=== PATIENT | male | born 1955 | race Caucasian/White ===

== ENCOUNTER 2019-01-13 06:55 | Day surgery (SDC) | payer OTHER ==
[2019-01-13] MEDS ORDERED: Midazolam 1 MG/ML 2 ML SDV ONE (07:26)
[2019-01-13] MEDS ORDERED: fentaNYL 100 MCG/2 ML SDV ONE (07:26)
[2019-01-13] MEDS ORDERED: Ondansetron 4 MG/2 ML SDV ONE (07:26)
[2019-01-13] MEDS ORDERED: Propofol 200 MG/20 ML SDV ONE (07:26)
[2019-01-13] MEDS ORDERED: Sodium Chloride 0.9% 1,000 ML IV SCH (07:30)
[2019-01-13 09:46] VITALS: BP 131/85; PULSE 65
--- NOTE | 2019-01-13 14:09 | OR ---
DATE OF PROCEDURE: 01/13/2019 SURGEON: Selvin Valdez MD PROCEDURE: Colonoscopy. FINDINGS: Diverticulosis, mild, mostly concentrated in the sigmoid colon, without evidence of diverticulitis or bleeding. PREOPERATIVE DIAGNOSIS: Screening colonoscopy. POSTOPERATIVE DIAGNOSIS: Screening colonoscopy. RISKS: Risks, benefits, alternatives, and limitations including, but not limited to, infection, bleeding, and perforation were explained to the patient, who wished to proceed. PROCEDURE IN DETAIL: The patient was placed in left lateral decubitus position. Digital rectal exam was performed without abnormality. The scope was introduced and advanced atraumatically to the ileocecal valve. A photo was taken of the appendiceal orifice. The scope was brought back through the ascending, transverse, descending colon, and retroflexed. No masses. No old or new blood. The diverticulosis would be described as [id number], mostly limited to sigmoid colon, with a few scattered diverticula throughout the entire colon. No abnormalities on retroflex. The patient tolerated the procedure well. Selvin Valdez MD /[id number]
== END 2019-01-13 09:40 | disposition home or self-care (01) ==
LOC: JP.SDS 06:55
PROVIDERS: ATTEND Surgery
DX: Z12.11 Encounter for screening for malignant neoplasm of colon (principal); K57.30 Diverticulosis of large intestine without perforation or abscess without bleeding; I10 Essential (primary) hypertension
CPT/HCPCS: J2250; J2405; J2704; J3010; J7030